=== PATIENT | female | born 1965 | race African-American/Black ===

== ENCOUNTER 2017-04-01 19:04 | Emergency (ER) | payer OTHER ==
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
--- NOTE | 2017-04-01 19:36 | PDOC ---
Medical Decision Making - Medical Decision Making 04/01/17 19:36 agree with care from MARILEE Liriano *DC/Admit/Observation/Transfer Diagnosis at time of Disposition: Cervical strain, Lumbar back pain - Discharge Dispostion Disposition: HOME Condition at time of disposition: Stable - Prescriptions Prescriptions: Cyclobenzaprine HCl [Flexeril 10 mg] 10 mg PO BID PRN #30 tablet PRN Reason: Back Pain - Patient Instructions Printed Discharge Instructions: DI for Low Back Pain, DI for Cervical Muscle Strain Additional Instructions: Ice; 20 mins on alternating with 20 mins off for 48 hours while awake. Rest Elevate Follow up with your orthopedic surgeon or the one listed on the discharge form. Return to the ER for severe/persistent/worsening symptoms, extremity numbness/ tingling sensation. Rx: Flexeril 10 mg take 1 tablet by mouth twice a day as needed. DO NOT DRIVE OR OPERATE HEAVY MACHINERY WHILE TAKING FLEXERIL
[2017-04-01 19:38] VITALS: BP 120/83; PULSE 78; TEMP 98.6; BMI 25.9
[2017-04-01] MEDS ORDERED: KETOROLAC TROMETHAMINE 60 MG/2 ML VIAL IM ONE (19:39)
[2017-04-01] MEDS ORDERED: KETOROLAC TROMETHAMINE 60 MG/2 ML VIAL ONE (19:57)
[2017-04-01] MEDS ORDERED: CYCLOBENZAPRINE HCL 10 MG TABLET (FP) ONE (19:57)
[2017-04-02] MEDS ORDERED: CYCLOBENZAPRINE HCL 5 MG TABLET PO SCH (10:00)
== END 2017-04-01 21:18 | disposition home or self-care (01) ==
LOC: JER 19:04
PROC: 3E0233Z Introduction of Anti-inflammatory into Muscle, Percutaneous Approach (ICD-10-PCS; principal; 2017-04-01)
DX: S16.1XXA Strain of muscle, fascia and tendon at neck level, initial encounter (principal); V43.62XA Car passenger injured in collision with other type car in traffic accident, initial encounter; Y92.414 Local residential or business street as the place of occurrence of the external cause; Y99.0 Civilian activity done for income or pay; Y93.89 Activity, other specified
CPT/HCPCS: 72050-TC; 72100-TC; 99281-25

== ENCOUNTER 2018-04-25 01:21 | Emergency (ER) | payer OTHER ==
[2018-04-25] MEDS ORDERED: KETOROLAC TROMETHAMINE 60 MG/2 ML VIAL IM ONE (02:06)
--- NOTE | 2018-04-25 02:06 | PDOC ---
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 Patient states while carrying heavy crime scene camera/ equipment, she felt and acute strain to her left shoulder. Pain is described as 7/10 dull nonradiating intermittent discomfort. The pain is exacerbated on touch and alleviated at rest. Patient denies any head/neck or back injuries. Patient denies extremity numbness or tingling sensation. Pain is exacerbated on certain movements and alleviated at rest. Past History - Past Medical History Allergies/Adverse Reactions: Allergies Allergy/AdvReac Type Severity Reaction Status Date / Time No Known Allergies Allergy Verified 04/25/18 02:17 Home Medications: Ambulatory Orders Levothyroxine [Synthroid -] 25 mcg PO DAILY 06/11/13 Cyclobenzaprine HCl [Flexeril 10 mg] 10 mg PO BID PRN #30 tablet 04/01/17 Thyroid Disease: Yes (hypothyroidism) - Suicide/Smoking/Psychosocial Hx Smoking History: Never smoked Have you smoked in the past 12 months: No Hx Alcohol Use: Yes (social) Drug/Substance Use Hx: No Substance Use Type: None Review of Systems - Review of Systems Able to Perform ROS?: Yes Comments:: 04/28/18 03:26 CONSTITUTIONAL: Absent: fever, chills, diaphoresis, generalized weakness, malaise, loss of appetite HEENT: Absent: rhinorrhea, nasal congestion, throat pain, throat swelling, difficulty swallowing, mouth swelling, ear pain, eye pain, visual Changes CARDIOVASCULAR: Absent: chest pain, loss of consciousness, palpitations, irregular heart rate, peripheral edema RESPIRATORY: Absent: cough, shortness of breath, dyspnea with exertion, orthopnea, wheezing, stridor, hemoptysis GASTROINTESTINAL: Absent: abdominal pain, abdominal distension, nausea, vomiting, diarrhea, constipation, melena, hematochezia GENITOURINARY: Absent: dysuria, frequency, urgency, hesitancy, hematuria, flank pain, genital pain MUSCULOSKELETAL: +left shoulder pain Absent: myalgia, arthralgia, joint swelling SKIN: Absent: rash, itching, pallor HEMATOLOGIC/IMMUNOLOGIC: Absent: easy bleeding, easy bruising, lymphadenopathy, frequent infections ENDOCRINE: Absent: unexplained weight gain, unexplained weight loss, heat intolerance, cold intolerance NEUROLOGIC: Absent: headache, focal weakness or paresthesias, dizziness, unsteady gait, seizure, mental status changes, bladder or bowel incontinence PSYCHIATRIC: Absent: anxiety, depression, suicidal or homicidal ideation, hallucinations. Is the patient limited Sammarinese proficient: No *Physical Exam - Physical Exam Comments: 04/28/18 03:26 GENERAL: Well developed, well nourished. Awake and alert. No acute distress. HEENT: Normocephalic, atraumatic. PERRLA, EOMI. No conjunctival pallor. Sclera are non- icteric. Moist mucous membranes. Oropharynx is clear. NECK: Supple. Full ROM. No JVD. Carotid pulses 2+ and symmetric, without bruits. No thyromegaly. No lymphadenopathy. CARDIOVASCULAR: Regular rate and rhythm. No murmurs, rubs, or gallops. Distal pulses are 2+ and symmetric. PULMONARY: No evidence of respiratory distress. Lungs clear to auscultation bilaterally. No wheezing, rales or rhonchi. ABDOMINAL: Soft. Non-tender. Non-distended. No rebound or guarding. No organomegaly. Normoactive bowel sounds. MUSCULOSKELETAL Normal range of motion at all joints. No bony deformities or tenderness. No CVA tenderness. EXTREMITIES: Left shoulder Decreased range of motion due to pain No obvious deformity Left elbow: Full range of motion No pain on palpation No obvious deformity No cyanosis. No clubbing. No edema. No calf tenderness. SKIN: Warm and dry. Normal capillary refill. No rashes. No jaundice. NEUROLOGICAL: Alert, awake, appropriate. Cranial nerves 2-12 intact. No deficits to light touch and temperature in face, upper extremities and lower extremities. No motor deficits in the in face, upper extremities and lower extremities. Normoreflexic in the upper and lower extremities. Normal speech. Toes are down- going bilaterally. Gait is normal without ataxia. PSYCHIATRIC: Cooperative. Good eye contact. Appropriate mood and affect. ED Treatment Course - RADIOLOGY Radiology Studies Ordered: Category Date Time Status SHOULDER-LEFT [RAD] Stat Radiology 04/25/18 01:35 Taken Radiograph Interpretation: 04/28/18 03:27 Xray left shoulder neg *DC/Admit/Observation/Transfer Diagnosis at time of Disposition: Shoulder pain, left Qualifiers: Chronicity: acute Qualified Code(s): M25.512 - Pain in left shoulder - Discharge Dispostion Disposition: HOME Condition at time of disposition: Stable Decision to Admit order: No - Referrals Referrals: Donald Davies MD [Non Staff, Medical] - Spencer Lo MD [Staff Physician] - - Patient Instructions Printed Discharge Instructions: DI for Shoulder Pain Additional Instructions: Ice; 20 mins on alternating with 20 mins off for 48 hours while awake. Rest Elevate Follow up with your orthopedic surgeon or the one listed on the discharge form. Return to the ER for severe/persistent/worsening symptoms, extremity numbness/ tingling sensation. - Post Discharge Activity Forms/Work/School Notes: Back to Work
[2018-04-25] MEDS ORDERED: KETOROLAC TROMETHAMINE 60 MG/2 ML VIAL ONE (02:12)
[2018-04-25 02:19] VITALS: BP 101/60; PULSE 82; TEMP 98.3; BMI 26.6
== END 2018-04-25 02:21 | disposition home or self-care (01) ==
LOC: JER 01:21
DX: S49.82XA Other specified injuries of left shoulder and upper arm, initial encounter (principal); X58.XXXA Exposure to other specified factors, initial encounter; Y93.89 Activity, other specified; Y92.89 Other specified places as the place of occurrence of the external cause; Y99.0 Civilian activity done for income or pay; E03.9 Hypothyroidism, unspecified
CPT/HCPCS: 73030-TC-LT-FY; 99283-25

== ENCOUNTER 2019-07-26 00:46 | Emergency (ER) | payer BC, OTHER ==
[2019-07-26] MEDS ORDERED: MAG HYDROX/AL HYDROX/SIMETH 30 ML UNIT-DOSE CUP PO ONE (01:40)
[2019-07-26] MEDS ORDERED: FAMOTIDINE 20 MG TABLET PO ONE (01:40)
[2019-07-26] MEDS ORDERED: FAMOTIDINE 20 MG TABLET ONE (01:45)
[2019-07-26] MEDS ORDERED: MAG HYDROX/AL HYDROX/SIMETH 30 ML UNIT-DOSE CUP ONE (01:45)
--- NOTE | 2019-07-26 01:49 | PDOC ---
History of Present Illness - General Chief Complaint: Chest Pain Stated Complaint: CHEST PAIN Time Seen by Provider: 07/26/19 01:29 History Source: Patient Exam Limitations: No Limitations - History of Present Illness Initial Comments: 07/26/19 01:39 HPI: 54yo F PMH Graves Disease presenting with chest discomfort for 1 day. Patient reports dull, burning epigastric pain that radiates upward substernally and has lasted since sometime yesterday morning. Pain slightly improves with changes in position. Denies Hx of HTN, HLD, DM, CAD. Denies nausea, vomiting, diaphoresis, SOB, shoulder / back pain, tearing pain. No recent travel. Denies any new exertions at work or recreationally. Tried new American food two nights ago. No history of GERD, has not taken any antacid medications or pain relievers at home. Reports having a normal stress test and ECHO about five years ago. No family cardiac history. No smoking, drinking, drug use. No increased stress. All: NKDA Meds: Thyroid PMH: Graves PSH: Denies Past History - Past Medical History Allergies/Adverse Reactions: Allergies Allergy/AdvReac Type Severity Reaction Status Date / Time No Known Allergies Allergy Verified 04/25/18 02:17 Home Medications: Ambulatory Orders Levothyroxine [Synthroid -] 25 mcg PO DAILY 06/11/13 Cyclobenzaprine HCl [Flexeril 10 mg] 10 mg PO BID PRN #30 tablet 04/01/17 COPD: No Thyroid Disease: Yes (hypothyroidism) - Immunization History Immunization Up to Date: Yes - Psycho Social/Smoking Cessation Hx Smoking History: Never smoked Have you smoked in the past 12 months: No Information on smoking cessation initiated: No Hx Alcohol Use: No Drug/Substance Use Hx: No Substance Use Type: None Review of Systems - Review of Systems Able to Perform ROS?: Yes Is the patient limited Sami proficient: Yes Constitutional: No: Chills, Fever, Weakness HEENTM: No: Nose Congestion, Throat Pain Respiratory: No: Cough, Shortness of Breath Cardiac (ROS): Yes: Chest Tightness. No: Chest Pain, Edema, Irregular Heart Rate, Lightheadedness, Palpitations, Syncope ABD/GI: No: Constipated, Diarrhea, Nausea, Vomiting : No: Burning, Dysuria Musculoskeletal: No: Back Pain, Muscle Pain, Muscle Weakness Integumentary: No: Pruritus, Rash Neurological: No: Headache, Numbness, Tingling, Weakness Psychiatric: No: Stressors, Change in Appetite Endocrine: No: Increased Thirst, Increased Urine Hematologic/Lymphatic: No: Anemia, Blood Clots, Easy Bleeding All Other Systems: Reviewed and Negative *Physical Exam - Vital Signs Last Vital Signs Temp Pulse Resp BP Pulse Ox 98.9 F 70 18 124/84 100 07/26/19 01:08 07/26/19 01:08 07/26/19 01:08 07/26/19 01:08 07/26/19 01:08 - Physical Exam 07/27/19 06:38 Vitals reviewed, AFVSS GEN: Well appearing, appears stated age, NAD, comfortable. AAOx3. HEENT: NCAT, EOMI, PERRL. Sclera anicteric, noninjected. No facial asymmetry. Moist mucous membranes. Normal voice. Trachea midline. CV: RRR, S1/S2, no murmurs / rubs / gallops appreciated. LUNG: CTAB, normal work of breathing. No wheezes, rales, rhonchi. No cough. Speaking full sentences. GI: Soft, NTND, +BS, no guarding, no rebound. No masses. Neg CVAT b/l. EXTREMITIES: 2+ distal pulses. No LE edema. No obvious deformities of all extremities. SKIN: Warm, dry, no rashes appreciated, non-jaundiced. PSYCH: Normal mood and affect. Cooperative and appropriate. NEURO: CN grossly intact. Moving all extremities well. Normal strength and sensation grossly. ED Treatment Course - LABORATORY CBC & Chemistry Diagram: 07/26/19 01:50 07/26/19 01:50 Medical Decision Making - Medical Decision Making 07/26/19 02:03 54yo F PMH Graves Disease presenting with chest discomfort for 1 day. - CBC, CMP, Cardiac Profile - CXR, EKG - Gary Carr 07/26/19 02:44 - All labs within normal limits - CXR without infiltrate, effusion, PTX - EKG normal rate, rhythm, axis, intervals, and morphologies - Patient feeling better with reassurance and GI cocktail Dispo: Home Discharge - Discharge Information Problems reviewed: Yes Clinical Impression/Diagnosis: Atypical chest pain Condition: Improved Disposition: HOME - Admission No - Follow up/Referral - Patient Discharge Instructions Patient Printed Discharge Instructions: DI for Atypical Chest Pain Additional Instructions: You were seen and evaluated for chest pain. Your workup was normal. Continue your home medications as directed. Follow up with your primary care provider in the next week for continued care. Please return with any new or concerning symptoms. - Post Discharge Activity Work/Back to School Note: Back to Work
[2019-07-26 02:10] LABS: BASO % 0.8 % (0-2.0); EOS % 1.5 % (0-4.5); HEMATOCRIT 36.8 % (32.4-45.2); HEMOGLOBIN 12.2 GM/dL (10.7-15.3); LYMPH % 28.8 % (8-40); MCH 29.6 pg (25.7-33.7); MCHC 33.1 g/dl (32.0-36.0); MEAN CELL VOLUME 89.4 fl (80-96); MEAN PLT VOLUME 8.4 fl (7.5-11.1); MONO % 9.9 % (3.8-10.2); PLATELET COUNT 253 K/MM3 (134-434); RBC 4.12 M/mm3 (3.60-5.2); RDW 12.7 % (11.6-15.6); WHITE BLOOD COUNT 4.7 K/mm3 (4.0-10.0)
--- NOTE | 2019-07-26 02:17 | PDOC ---
Attending Attestation - Resident Resident Name: ImtiazGerman rosas (\) - ED Attending Attestation I have performed the following: I have examined & evaluated the patient, The case was reviewed & discussed with the resident, I agree w/resident's findings & plan - HPI HPI: 07/26/19 02:16 Pt comes with chest pain and anxious that this may be her heart 07/31/19 20:25 HPI: 54yo F PMH Graves Disease presenting with chest discomfort for 1 day. Patient reports dull, burning epigastric pain that radiates upward substernally and has lasted since sometime yesterday morning. Pain slightly improves with changes in position. Denies Hx of HTN, HLD, DM, CAD. Denies nausea, vomiting, diaphoresis, SOB, shoulder / back pain, tearing pain. No recent travel. Denies any new exertions at work or recreationally. Tried new American food two nights ago. No history of GERD, has not taken any antacid medications or pain relievers at home. Reports having a normal stress test and ECHO about five years ago. No family cardiac history. No smoking, drinking, drug use. No increased stress. - Physicial Exam PE: 07/31/19 20:26 Normal heart and lungs No C/C/E of legs Afebrile VSS Agree with resident exam - Medical Decision Making 07/26/19 02:17 CBC is normal Pt has chem pending 07/31/19 20:26 All labs normal. Pt will bedischarged as she is stable and she is cleared for discharge
[2019-07-26 02:36] LABS: ALBUMIN 3.8 g/dl (3.4-5.0); ALK PHOS 46 U/L (45-117); ANION GAP 6 MMOL/L (8-16); BILIRUBIN,TOTAL 0.4 mg/dL (0.2-1); BLOOD UREA NITROGEN 11.1 mg/dL (7-18); CHLORIDE 108 mmol/L (98-107); CO2 28 mmol/L (21-32); CREATININE 1.1 mg/dL (0.55-1.3); GLUCOSE,RANDOM 104 mg/dL (74-106); POTASSIUM 3.7 mmol/L (3.5-5.1); SGOT/AST 18 U/L (15-37); SGPT/ALT 19 U/L (13-61); SODIUM 143 mmol/L (136-145)
[2019-07-26 08:23] VITALS: BP 124/84; PULSE 70; TEMP 98.9; BMI 27.1
--- NOTE | 2019-07-26 13:52 | EKG ---
Test Reason : Blood Pressure : / mmHG Vent. Rate : 076 BPM Atrial Rate : 076 BPM P-R Int : 152 ms QRS Dur : 100 ms QT Int : 398 ms P-R-T Axes : 084 062 074 degrees QTc Int : 447 ms NORMAL SINUS RHYTHM NORMAL ECG WHEN COMPARED WITH ECG OF 18-DEC-2013 05:24, NO SIGNIFICANT CHANGE WAS FOUND Confirmed by Artie Sy ([id number]) on 07/26/2019 1:51:50 PM Referred By: Confirmed By:Artie Sy
== END 2019-07-26 03:52 | disposition home or self-care (01) ==
LOC: JER 00:46
DX: R07.89 Other chest pain (principal); E03.9 Hypothyroidism, unspecified
CPT/HCPCS: 36415; 71045-TC-FY; 80053; 82550; 84484; 85025; 93005; 93010; 99283-25